=== PATIENT | female | born 1980 | race Caucasian/White ===

== ENCOUNTER 2016-09-24 20:49 | Emergency (ER) | payer SELFPAY ==
[2016-09-24 21:02] VITALS: BP 116/66; PULSE 91; TEMP 98; BMI 20.1
[2016-09-24] MEDS ORDERED: CEPHALEXIN MONOHYDRATE 500 MG CAPSULE (UD) PO ONE (23:01)
--- NOTE | 2016-09-24 23:01 | PDOC ---
History of Present Illness - General History Source: Patient <Idris Holman - Last Filed: 09/24/16 23:03> - General History Source: Patient Exam Limitations: No Limitations - History of Present Illness Initial Comments: 09/24/16 23:10 The patient is a 36 year old female with no significant past medical history who presents to the ED s/p scratch by a dog prior to arrival. Patient reports she went for a dog, when a dog came at her and scratch her with its teeth. The area does not appear to be a bite or puncture wound. It appears to be an abrasion on her abdomen sustained by the dogs teeth. 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 Her last tetanus was several years ago The patient denies fever, chills, cough, SOB, chest pain, and palpitations. The patient denies abdominal pain, nausea, vomiting, and diarrhea. Allergies: NKDA Social History: No alcohol, tobacco, or drug use reported. Past Surgical History: cholecystectomy PCP: Dr. Avery Schroeder <Ioana Espana - Last Filed: 09/24/16 23:10> - General Chief Complaint: Bite Stated Complaint: BITE-DOG Time Seen by Provider: 09/24/16 22:56 Past History - Surgical History Cholecystectomy: Yes - Psycho/Social/Smoking Cessation Hx Suicidal Ideation: No Smoking History: Never smoked Hx Alcohol Use: No Drug/Substance Use Hx: No Substance Use Type: None <Idris Holman - Last Filed: 09/24/16 23:03> <Ioana Espana - Last Filed: 09/24/16 23:10> - Past Medical History Allergies/Adverse Reactions: Allergies Allergy/AdvReac Type Severity Reaction Status Date / Time No Known Allergies Allergy Verified 09/24/16 20:54 Home Medications: Ambulatory Orders Cephalexin Monohydrate [Keflex -] 500 mg PO BID #14 capsule 09/24/16 Review of Systems - Review of Systems Able to Perform ROS?: Yes Comments:: 09/24/16 23:10 CONSTITUTIONAL: Absent: fever, no chills, no fatigue EYES: Absent: visual changes ENT: Absent: ear pain, no sore throat CARDIOVASCULAR: Absent: chest pain, no palpitations RESPIRATORY: Absent: cough, no SOB GI: Absent: abdominal pain, no nausea, no vomiting, no constipation, no diarrhea GENITOURINARY: Absent: dysuria, no frequency, no hematuria MUSCULOSKELETAL: Absent: back pain, no arthralgia, no myalgia SKIN: +abrasion on the abdomen Absent: rash NEURO: Absent: headache <MalorieKourtneyIoana - Last Filed: 09/24/16 23:10> *Physical Exam - Vital Signs Last Vital Signs Temp Pulse Resp BP Pulse Ox 98 F 91 H 18 116/66 100 09/24/16 20:54 09/24/16 20:54 09/24/16 20:54 09/24/16 20:54 09/24/16 20:54 <Idris Holman - Last Filed: 09/24/16 23:03> - Vital Signs Last Vital Signs Temp Pulse Resp BP Pulse Ox 98 F 91 H 18 116/66 100 09/24/16 20:54 09/24/16 20:54 09/24/16 20:54 09/24/16 20:54 09/24/16 20:54 - Physical Exam Comments: 09/24/16 23:10 GENERAL: Well-appearing, well-nourished. No apparent distress. HEENT: Normocephalic, atraumatic. PERRL, EOM intact. CARDIOVASCULAR: Normal S1, S2. Regular rate and rhythm. PULMONARY: Clear to auscultation bilaterally. ABDOMEN: Soft, non-distended, non-tender. EXTREMITIES: Normal ROM in all four extremities. No gross deformities. SKIN: Warm, dry. No rash. Abrasion just above the symphysis pubis, no drainage or no erythema. NEUROLOGICAL: No focal neurological deficits. <Ioana Espana - Last Filed: 09/24/16 23:10> Medical Decision Making - Medical Decision Making 09/24/16 23:04 Dr. Holman: The scribe's documentation has been prepared under my direction and personally reviewed by me in its entirery. I confirm that the note above accurately reflects all work, treatment, procedures, and medical decision making performed by me. <Idris Holman - Last Filed: 09/24/16 23:03> *DC/Admit/Observation/Transfer - Discharge Dispostion Admit: No <Idris Holman - Last Filed: 09/24/16 23:03> - Attestations Scribe Attestion: 09/24/16 23:10 Documentation prepared by Ioana Espana, acting as manager medical affairs for Idris Holman MD/DO. <Ioana Espana - Last Filed: 09/24/16 23:10> Diagnosis at time of Disposition: Abrasion - Discharge Dispostion Disposition: HOME Condition at time of disposition: Stable - Prescriptions Prescriptions: Cephalexin Monohydrate [Keflex -] 500 mg PO BID #14 capsule - Referrals Referrals: Avery Schroeder [Primary Care Provider] - - Patient Instructions Printed Discharge Instructions: DI for Abrasion Additional Instructions: Keep area clean and dry. WAsh with soap and water. complete take the antibiotic
[2016-09-24] MEDS ORDERED: TETANUS AND DIPHTHERIA TOXOID 0.5 ML DISP.SYRIN IM ONE (23:02)
[2016-09-24] MEDS ORDERED: CEPHALEXIN MONOHYDRATE 250 MG CAPSULE (FP) ONE (23:18)
== END 2016-09-24 23:32 | disposition home or self-care (01) ==
LOC: JER 20:49
PROC: 3E0234Z Introduction of Serum, Toxoid and Vaccine into Muscle, Percutaneous Approach (ICD-10-PCS; principal; 2016-09-24)
DX: S30.811A Abrasion of abdominal wall, initial encounter (principal); W54.0XXA Bitten by dog, initial encounter; Y93.89 Activity, other specified; Y92.89 Other specified places as the place of occurrence of the external cause
CPT/HCPCS: 99282-25